=== PATIENT | female | born 1985 | race Asian ===

== ENCOUNTER 2016-10-06 14:34 | Outpatient (CLI) | payer OTHER | END 2016-10-06 19:24 | disposition home or self-care (01) | LOC: RAD 14:34 | DX: R10.84 Generalized abdominal pain (principal) ==

== ENCOUNTER 2016-10-07 19:56 | Emergency (ER) | payer OTHER ==
[~2016-10-07] VITALS: Ht 165.1 cm; Wt 74.8 kg
[2016-10-07 22:37] LABS: PLATELET COUNT 249 K/uL (152-353)
[2016-10-08 00:07] VITALS: BP 122/74; TEMP 99.7
== END 2016-10-08 00:10 | disposition home or self-care (01) ==
LOC: ED 19:56
PROVIDERS: Specialist
DX: R10.2 Pelvic and perineal pain (principal)
CPT/HCPCS: 81000; 81025; 85027; 87220; 87491; 87591; 99285; J0696; J1885; J2405

== ENCOUNTER 2017-06-14 11:32 | Outpatient (CLI) | payer OTHER | END 2017-06-14 12:35 | disposition home or self-care (01) | LOC: US 11:32 | DX: R10.2 Pelvic and perineal pain (principal) ==

== ENCOUNTER 2018-09-10 19:29 | Emergency (ER) | payer OTHER ==
[~2018-09-10] VITALS: Ht 165.1 cm; Wt 77.1 kg
[2018-09-10 22:58] LABS: PLATELET COUNT 212 K/uL (152-353)
[2018-09-10 23:01] LABS: POTASSIUM 3.9 mmol/L (3.6-5.2)
[2018-09-10 23:59] VITALS: BP 103/110; TEMP 98.2
== END 2018-09-11 | disposition home or self-care (01) ==
LOC: ED 19:29
PROVIDERS: Family Medicine
DX: M54.9 Dorsalgia, unspecified (principal); M54.10 Radiculopathy, site unspecified
CPT/HCPCS: 36415; 80053; 81000; 81025; 85027; 99283; J1885

== ENCOUNTER 2020-12-11 20:11 | Emergency (ER) | payer OTHER ==
[~2020-12-11] VITALS: Ht 165.1 cm; Wt 72.6 kg
[2020-12-11] MEDS ORDERED: PROM25TA52 PO (20:47)
[2020-12-11 21:36] VITALS: BP 96/53; TEMP 99.4
== END 2020-12-11 21:41 | disposition home or self-care (01) ==
LOC: ED 20:11
DX: O21.0 Mild hyperemesis gravidarum (principal); Z3A.08 8 weeks gestation of pregnancy
CPT/HCPCS: 81000; 87086; 87088; 96360; 96372; 99284; J2550

== ENCOUNTER 2020-12-27 08:05 | Outpatient (CLI) | payer OTHER ==
[~2020-12-27 08:05] MED LIST: PROM25TA52 PO
== END 2020-12-27 22:16 | disposition home or self-care (01) ==
LOC: US 08:05
PROVIDERS: ATTEND Obstetrics & Gynecology
DX: R10.30 Lower abdominal pain, unspecified (principal); R10.31 Right lower quadrant pain; R11.2 Nausea with vomiting, unspecified